=== PATIENT | female | born 2000 | race Caucasian/White ===

== ENCOUNTER → 2021-05-23 | Outpatient (REF) | payer BC ==
[2021-05-23 20:38] LABS: GC DNA AMPLIFICATION NEGATIVE (NEGATIVE)
== END ==
LOC: M SFHCWAGY 16:40
PROVIDERS: ATTEND Nurse Practitioner Women's Health
DX: Z11.3 Encounter for screening for infections with a predominantly sexual mode of transmission (principal)
CPT/HCPCS: 87661; G0123

== ENCOUNTER → 2022-08-24 | Outpatient (REF) | payer BC | LOC: M SFHCWAGY 17:08 | PROVIDERS: ATTEND Advanced Practice Midwife | DX: Z12.4 Encounter for screening for malignant neoplasm of cervix (principal) ==

== ENCOUNTER → 2022-11-02 | Outpatient (CLI) | payer BC ==
[~2022-11-02] MED LIST: ISOVUE-370 76% 100ML VIAL ONE
== END ==
LOC: M PLAIMG 10:15
PROVIDERS: ATTEND Physician Assistant
DX: H57.12 Ocular pain, left eye (principal)
CPT/HCPCS: 70487; Q9967

== ENCOUNTER → 2023-07-25 | Outpatient (REF) | payer BC ==
[2023-07-25 20:42] LABS: INR 1.06; PROTHROMBIN TIME 13.5 SECONDS (12.5-14.5)
== END ==
LOC: M SFHCADAM 15:21
PROVIDERS: ATTEND Physician Assistant
DX: R23.3 Spontaneous ecchymoses (principal)

== ENCOUNTER → 2023-11-01 | Outpatient (REF) | payer BC | LOC: M SFHCWAGY 15:18 | PROVIDERS: ATTEND Advanced Practice Midwife | DX: Z12.4 Encounter for screening for malignant neoplasm of cervix (principal) ==

== ENCOUNTER → 2024-11-06 | Outpatient (REF) | payer BC ==
[2024-11-06 14:26] LABS: ALBUMIN 3.6 G/DL (3.2-5.2); BILIRUBIN,DIRECT 0.1 MG/DL (<0.4); BILIRUBIN,TOTAL 0.5 MG/DL (0.3-1.2); TOTAL PROTEIN 7.4 G/DL (5.7-8.2)
== END ==
LOC: M SFHCADAM 10:58
PROVIDERS: ATTEND Physician Assistant
DX: B35.4 Tinea corporis (principal)

== ENCOUNTER → 2025-06-22 | Outpatient (REF) | payer BC ==
[2025-06-24 14:32] LABS: HPV APTIMA Not Detected (Not Detected)
== END ==
LOC: M SFHCWAGY 13:06
PROVIDERS: ATTEND Advanced Practice Midwife
DX: Z12.4 Encounter for screening for malignant neoplasm of cervix (principal); R87.610 Atypical squamous cells of undetermined significance on cytologic smear of cervix (ASC-US)
CPT/HCPCS: 87624; G0123